=== PATIENT | female | born 1960 | race Two or more races ===

== ENCOUNTER 2024-07-02 13:20 | Outpatient (AMB) | payer MEDICAID, SELFPAY ==
[2024-07-02 13:38] VITALS: BP 147/91; PULSE 62; RESP 18; TEMP 36.3; O2SAT 98; BMI 29.5
--- NOTE | 2024-07-02 13:38 | PD.ORTHCLVIS ---
Vital signs 07/02/24 13:38 Height 1.55 m Height Method Stated Weight 70.931 kg Weight Measurement Method Standing Scale BMI 29.5 BP 147/91 H Blood Pressure Source Automatic Cuff Blood Pressure Location Right Upper Arm Position Sitting Respiration 18 Pulse 62 Pulse Source Monitor Temp 97.4 F Temp Source Temporal Artery Scan Pulse Oximetry (%) 98 Oxygen Delivery Method Room Air Med/Allergies Allergies & Medications Allergies No Known Drug Allergies Allergy (Verified 07/02/24 13:41) Medication Reconciliation metformin 500 mg tablet 500 mg PO QDAY 07/02/24 [History Confirmed 07/02/24] Subjective Visit Visit for: new patient and knee Immunization / Flu Flu Vaccine in the Last 12 Months: No Flu Vaccine Exclusion Criteria: No Exclusion Criteria History of Present Illness Chief complaint: BILATERAL KNEE INJECTION Patient is a pleasant 63-year-old female with bilateral knee pain worse on the left. She has had 2 injections of both knees. She was told is arthritis. The pain is actually improved. She has tried naproxen as well. No physical therapy has ever been attempted Personal History Occupation: DIET ATTENDANT Red flag PMH: none Pain Pain level (0-10): 8 Pain duration: ALL DAY Pain location: inside (medial), outside (lateral), anterior and posterior Pain quality: sharp, dull and aching Pain timing: night, increases with activity and stairs Associated signs & symptoms: stiffness Ambulatory data Ambulatory device: none Treatments Improvement with previous injections: No Improvement with PT: No Improvement with NSAIDS: n/a Review of Systems Review of Systems: All systems negative unless otherwise noted in HPI. Exam Exam Patient is in no acute distress and is cooperative with the examination today. Breathing is nonlabored. In no respiratory distress. Bilateral extremities were evaluated and demonstrates sensation intact to light touch. Palpable pedal pulses are present. No significant edema is present. Bilateral hips were examined. The patient has no pain with log roll of the hips. Internal rotation to 30 degrees and external rotation to 30 degrees is painless. Negative FADIR. The left knee was examined. The left knee is in [varus] alignment. Range of motion from [0-115] degrees. Knee is stable to varus and valgus as well as AP translation with <5mm. Patient has a [negative] McMurrays. There is [no] pain with patellofemoral compression and [no] crepitus noted. The knee is [tender] to palpation [medially]. The right knee was also examined. The right knee is in [varus] alignment. Range of motion from [0-120] degrees. Knee is stable to varus and valgus as well as AP translation with <5mm. Patient has a [negative] McMurrays. There is [no] pain with patellofemoral compression and [no] crepitus noted. The knee is [tender] to palpation [medially]. Assessment and Plan Problem List (1) Bilateral primary osteoarthritis of knee: Status: Acute Plan: The patient is a pleasant 63-year-old female with bilateral knee pain and bilateral knee osteoarthritis. The pain has subsided somewhat. She has done well with cortisone injections. We will get new x-rays and see her back in approximately 1 to 2 weeks to go over the results. Office Procedures GNS Level of Care Nursing/Assessment Patient Status: Initial/New Patient Nursing Assessment/Reassesment: Medication Reconciliation, Update PMH in EMR and Vital Signs Coordination of Care: Complex Care and Chronic Disease 1-5, Education Complex Pt/Fam, Consent,records obtained, informed consent, Results/Orders obtained and Staff clarify orders Special Needs: Language special needs New Patient Charge New Patient Point Assignment: 1094 New Patient Point Charge: SHIPPING AND RECEIVING OPERATOR Level 3 ([id number]) Past Medical History Past Medical History Have you ever been diagnosed with any of the following: Respiratory Problems Smoking: No Smoking Exposure: No
== END 2024-07-02 14:13 | disposition home or self-care (01) ==
LOC: HODSRG 13:20
PROVIDERS: PCP Nurse Practitioner Family; Referring Provider Nurse Practitioner Family; Supervising Provider Orthopaedic Surgery Adult Reconstructive Orthopaedic Surgery; Visit Provider Orthopaedic Surgery Adult Reconstructive Orthopaedic Surgery
DX: M17.0 Bilateral primary osteoarthritis of knee (principal); M25.562 Pain in left knee; M25.561 Pain in right knee
CPT/HCPCS: 99203; G0463

== ENCOUNTER 2024-07-26 09:38 | Outpatient (AMB) | payer MEDICAID, SELFPAY ==
[2024-07-26 10:10] VITALS: BP 143/91; PULSE 73; RESP 18; TEMP 36.6; O2SAT 94; BMI 29.0
--- NOTE | 2024-07-26 10:10 | ORTHONT_ITS ---
Vital signs 07/26/24 10:10 Height 1.55 m Height Method Stated Weight 69.853 kg Weight Measurement Method Standing Scale BMI 29.0 BP 143/91 H Blood Pressure Source Automatic Cuff Blood Pressure Location Right Upper Arm Position Sitting Respiration 18 Pulse 73 Pulse Source Monitor Temp 97.8 F Temp Source Temporal Artery Scan Pulse Oximetry (%) 94 L Oxygen Delivery Method Room Air Med/Allergies Allergies & Medications Allergies No Known Drug Allergies Allergy (Verified 07/26/24 10:13) Medication Reconciliation metformin 500 mg tablet 500 mg PO QDAY 07/02/24 [History Confirmed 07/26/24] meloxicam 7.5 mg tablet 7.5 mg PO QDAY #45 tabs 07/26/24 [Rx] Subjective Visit Visit for: follow up visit, knee and x-rays (BILATERAL) Immunization / Flu Flu Vaccine in the Last 12 Months: Yes Flu Vaccine Exclusion Criteria: Already Received History of Present Illness Chief complaint: XRAY RESULTS/INJECTION Patient is a pleasant 63-year-old female with bilateral knee pain worse on the left. She has had 2 injections of both knees. She was told is arthritis. The pain is actually improved. She has tried naproxen as well. No physical therapy has ever been attempted Personal History Occupation: INDUSTRIAL TRUCK OPERATOR Red flag PMH: none Pain Pain level (0-10): 8 Pain duration: CONSTANT Pain location: inside (medial) Pain quality: sharp, dull and aching Pain timing: night and increases with activity Associated signs & symptoms: stiffness Ambulatory data Ambulatory device: none Treatments Number of previous injections: 2 Improvement with previous injections: No Improvement with PT: No Improvement with NSAIDS: no Review of Systems Review of Systems: All systems negative unless otherwise noted in HPI. Exam Exam Patient is in no acute distress and is cooperative with the examination today. Breathing is nonlabored. In no respiratory distress. Bilateral extremities were evaluated and demonstrates sensation intact to light touch. Palpable pedal pulses are present. No significant edema is present. Bilateral hips were examined. The patient has no pain with log roll of the hips. Internal rotation to 30 degrees and external rotation to 30 degrees is painless. Negative FADIR. The left knee was examined. The left knee is in [varus] alignment. Range of motion from [0-115] degrees. Knee is stable to varus and valgus as well as AP translation with <5mm. Patient has a [negative] McMurrays. There is [no] pain with patellofemoral compression and [no] crepitus noted. The knee is [tender] to palpation [medially]. The right knee was also examined. The right knee is in [varus] alignment. Range of motion from [0-120] degrees. Knee is stable to varus and valgus as well as AP translation with <5mm. Patient has a [negative] McMurrays. There is [no] pain with patellofemoral compression and [no] crepitus noted. The knee is [tender] to palpation [medially]. X-rays demonstrate severe arthritis with medial joint space narrowing and osteophytes as well as varus deformity. Assessment and Plan Problem List (1) Bilateral primary osteoarthritis of knee: Status: Acute Plan: The patient is a pleasant 63-year-old female with bilateral knee pain and bilateral knee osteoarthritis. She has done well with cortisone injections. She would like to get knee cortisone injections today. We have also prescribed her an anti-inflammatory. Recommend knee cortisone injections as patient would like to proceed with conservative treatment at this time. The risks and benefits of the procedure were reviewed with the patient and patient gave verbal consent to continue with the procedure. Procedure: performed by Dr. Lawrence Using sterile technique the Bilateral knees were thoroughly prepped with alcohol, and approximately 1 cc of Kenalog 40 mg/mL and 4 cc of 1% lidocaine was injected into each knee without resistance into the medial tibial femoral joint space. The patient tolerated the procedure. Office Procedures GNS Level of Care Nursing/Assessment Patient Status: Established Patient Nursing Assessment/Reassesment: Medication Reconciliation, Update PMH in EMR and Vital Signs Coordination of Care: Complex Care and Chronic Disease 1-5, Education Complex Pt/Fam, Consent,records obtained, informed consent, 1 Ins Authorization, Results/Orders obtained and Staff clarify orders Special Needs: Language special needs Established Patient Charge Established Patient Point Assignment: 110 Established Patient Point Charge: EP Level 3 (80-115) Surgical Proc/IM SQ injection Major Surgical Procedure: Yes (BILATERAL KNEE INJECTION) Medication Given Medication Given Medication Given: Yes Documented Dose Given: 8 Route: Infiitration Medication Given Medication Given Medication Given: Yes Documented Dose Given: 2 Route: Infiitration Office Meds Xylocaine 10 mg/mL (1 %) injection solution Performing Provider: Miles Lawrence MD Performing Location: [facility] Administered by: Mlies Lawrence MD on 07/26/24 10:43 Dose Route Admin Location Dispensed Lot Number Expiration Date [facility] Brake Repairer Hydraulic 40 mL Infiltration 40 mL [id number] 04/02/27 61685-109-54 [facility] triamcinolone acetonide 40 mg/mL suspension for injection Performing Provider: Miles Lawrence MD Performing Location: [facility] Administered by: Miles Lawrence MD on 07/26/24 10:43 Dose Route Admin Location Dispensed Lot Number Expiration Date [facility] Brake Rep[employer]r Hydraulic 80 mg Infiltration 2 mL [id number] 04/02/26 [id number] [employer] Past Medical History Past Medical History Have you ever been diagnosed with any of the following: Respiratory Problems Smoking: No Smoking Exposure: No
== END 2024-07-26 10:41 | disposition home or self-care (01) ==
LOC: HODSRG 09:38
PROVIDERS: PCP Nurse Practitioner Family; Referring Provider Nurse Practitioner Family; Supervising Provider Orthopaedic Surgery Adult Reconstructive Orthopaedic Surgery; Visit Provider Orthopaedic Surgery Adult Reconstructive Orthopaedic Surgery
DX: M17.0 Bilateral primary osteoarthritis of knee (principal); M25.562 Pain in left knee; M25.561 Pain in right knee
CPT/HCPCS: 20610; 99213; J3301; J3490; G0463

== ENCOUNTER 2024-11-08 13:09 | Outpatient (AMB) | payer MEDICAID, SELFPAY ==
--- NOTE | 2024-11-08 13:20 | PD.ORTHCLVIS ---
Vital signs 11/08/24 13:27 Height 1.55 m Height Method Stated Weight 69.57 kg Weight Measurement Method Standing Scale BMI 28.9 BP 141/91 H Blood Pressure Source Automatic Cuff Blood Pressure Location Right Upper Arm Position Sitting Respiration 19 Pulse 67 Pulse Source Monitor Temp 96.2 F L Temp Source Temporal Artery Scan Pulse Oximetry (%) 98 Oxygen Delivery Method Room Air Med/Allergies Allergies & Medications Allergies No Known Drug Allergies Allergy (Verified 11/08/24 13:28) Medication Reconciliation metformin 500 mg tablet 500 mg PO QDAY 07/02/24 [History Confirmed 11/08/24] meloxicam 7.5 mg tablet 7.5 mg PO QDAY #45 tabs 07/26/24 [Rx Confirmed 11/08/24] Exam Exam Patient is in no acute distress and is cooperative with the examination today. Breathing is nonlabored. In no respiratory distress. Bilateral extremities were evaluated and demonstrates sensation intact to light touch. Palpable pedal pulses are present. No significant edema is present. Bilateral hips were examined. The patient has no pain with log roll of the hips. Internal rotation to 30 degrees and external rotation to 30 degrees is painless. Negative FADIR. The left knee was examined. The left knee is in [varus] alignment. Range of motion from [0-115] degrees. Knee is stable to varus and valgus as well as AP translation with <5mm. Patient has a [negative] McMurrays. There is [no] pain with patellofemoral compression and [no] crepitus noted. The knee is [tender] to palpation [medially]. The right knee was also examined. The right knee is in [varus] alignment. Range of motion from [0-120] degrees. Knee is stable to varus and valgus as well as AP translation with <5mm. Patient has a [negative] McMurrays. There is [no] pain with patellofemoral compression and [no] crepitus noted. The knee is [tender] to palpation [medially]. X-rays demonstrate severe arthritis with medial joint space narrowing and osteophytes as well as varus deformity. Assessment and Plan Problem List (1) Bilateral primary osteoarthritis of knee: Status: Acute Plan: The patient is a pleasant 64-year-old female with bilateral knee pain and bilateral knee osteoarthritis. She has done well with cortisone injections. She would like to get knee cortisone injections today. We have also prescribed her an anti-inflammatory. Recommend knee cortisone injections as patient would like to proceed with conservative treatment at this time. The risks and benefits of the procedure were reviewed with the patient and patient gave verbal consent to continue with the procedure. Procedure: performed by Dr. Lawrence Using sterile technique the Bilateral knees were thoroughly prepped with alcohol, and approximately 1 cc of Kenalog 40 mg/mL and 4 cc of 1% lidocaine was injected into each knee without resistance into the medial tibial femoral joint space. The patient tolerated the procedure. Office Procedures GNS Level of Care Nursing/Assessment Patient Status: Established Patient Nursing Assessment/Reassesment: Medication Reconciliation, Update PMH in EMR and Vital Signs Coordination of Care: Complex Care and Chronic Disease 1-5, Education Complex Pt/Fam, Consent,records obtained, informed consent, Results/Orders obtained and Staff clarify orders Special Needs: Language special needs Established Patient Charge Established Patient Point Assignment: 95 Established Patient Point Charge: EP Level 3 (80-115) Surgical Proc/IM SQ injection Major Surgical Procedure: Yes (knee injections ) Medication Given Medication Given Medication Given: Yes Documented Dose Given: 8 Route: Infiitration Medication Given Medication Given Medication Given: Yes Documented Dose Given: 2 Route: Infiitration Office Meds Xylocaine 10 mg/mL (1 %) injection solution Performing Provider: Miles Lawrence MD Performing Location: [facility] Administered by: Miles Lawrence MD on 11/08/24 13:29 Dose Route Admin Location Dispensed Lot Number Expiration Date [facility] Freight Elevator Operator 40 mL Infiltration 40 mL triamcinolone acetonide 40 mg/mL suspension for injection Performing Provider: Miles Lawrence MD Performing Location: [facility] Administered by: Miles Lawrence MD on 11/08/24 13:29 Dose Route Admin Location Dispensed Lot Number Expiration Date [facility] Freight Elevator Operator 80 mg intra-articular 2 mL MA Intake Visit Data Collection New Patient or Established: Established Patient (seen at [facility] within 3 years) Reason for Visit:: f/u knee injections Seen by Clinical Staff ONLY (RN/MA): No Verbal consent obtained for Telemed visit?: No Foreclosure Specialist Required: Yes PCP or OBGYN visit in last 3 months: Yes Hx Now: No Do You Feel Safe at Home: Yes Authorities Contacted: N/A Questionairres Past Medical History Past Medical History Have you ever been diagnosed with any of the following: Respiratory Problems Smoking: No Smoking Exposure: No Subjective Visit Visit for: knee and injections Immunization / Flu Flu Vaccine in the Last 12 Months: No Flu Vaccine Exclusion Criteria: No Exclusion Criteria History of Present Illness Chief complaint: Bilateral knee pain Patient is a pleasant 61-year-old female with bilateral knee pain and bilateral knee arthritis. She is done well with cortisone injections in the past. She would like bilateral knee injections today. The knee injections have worked for 3 months Pain Pain level (0-10): 5 Pain location: inside (medial), outside (lateral), anterior and posterior Pain quality: sharp, dull and aching Associated signs & symptoms: none Ambulatory data Ambulatory device: none Treatments Improvement with previous injections: Yes Improvement with PT: Yes Improvement with NSAIDS: no Review of Systems Review of Systems: All systems negative unless otherwise noted in HPI.
[2024-11-08 13:27] VITALS: BP 141/91; PULSE 67; RESP 19; TEMP 35.7; O2SAT 98; BMI 28.9
== END 2024-11-08 13:41 | disposition home or self-care (01) ==
LOC: HODSRG 13:09
PROVIDERS: PCP Registered Nurse; Referring Provider Registered Nurse; Supervising Provider Orthopaedic Surgery Adult Reconstructive Orthopaedic Surgery; Visit Provider Orthopaedic Surgery Adult Reconstructive Orthopaedic Surgery
DX: M17.0 Bilateral primary osteoarthritis of knee (principal); M25.562 Pain in left knee; M25.561 Pain in right knee
CPT/HCPCS: 20610; 99213; J3301; J3490; G0463

== ENCOUNTER 2025-02-11 13:10 | Outpatient (AMB) | payer MEDICAID, SELFPAY ==
--- NOTE | 2025-02-11 13:40 | PD.ORTHCLVIS ---
Vital signs 02/11/25 13:43 Height 1.55 m Height Method Stated Weight 71.356 kg Weight Measurement Method Standing Scale BMI 29.7 BP 125/80 Blood Pressure Source Automatic Cuff Blood Pressure Location Left Upper Arm Position Sitting Respiration 18 Pulse 69 Pulse Source Monitor Temp 98.2 F Temp Source Temporal Artery Scan Pulse Oximetry (%) 97 Oxygen Delivery Method Room Air Med/Allergies Allergies & Medications Allergies No Known Drug Allergies Allergy (Verified 02/11/25 13:44) Medication Reconciliation metformin 500 mg tablet 500 mg PO QDAY 07/02/24 [History Confirmed 02/11/25] meloxicam 7.5 mg tablet 7.5 mg PO QDAY #45 tabs 07/26/24 [Rx Confirmed 02/11/25] Exam Exam Patient is in no acute distress and is cooperative with the examination today. Breathing is nonlabored. In no respiratory distress. Bilateral extremities were evaluated and demonstrates sensation intact to light touch. Palpable pedal pulses are present. No significant edema is present. Bilateral hips were examined. The patient has no pain with log roll of the hips. Internal rotation to 30 degrees and external rotation to 30 degrees is painless. Negative FADIR. The left knee was examined. The left knee is in [varus] alignment. Range of motion from [0-115] degrees. Knee is stable to varus and valgus as well as AP translation with <5mm. Patient has a [negative] McMurrays. There is [no] pain with patellofemoral compression and [no] crepitus noted. The knee is [tender] to palpation [medially]. The right knee was also examined. The right knee is in [varus] alignment. Range of motion from [0-120] degrees. Knee is stable to varus and valgus as well as AP translation with <5mm. Patient has a [negative] McMurrays. There is [no] pain with patellofemoral compression and [no] crepitus noted. The knee is [tender] to palpation [medially]. X-rays demonstrate severe arthritis with medial joint space narrowing and osteophytes as well as varus deformity. Assessment and Plan Problem List (1) Bilateral primary osteoarthritis of knee: Status: Acute Plan: The patient is a pleasant 64-year-old female with bilateral knee pain and bilateral knee osteoarthritis. She has done well with cortisone injections. She would like to get knee cortisone injections today. We have also prescribed her an anti-inflammatory. Recommend knee cortisone injections as patient would like to proceed with conservative treatment at this time. The risks and benefits of the procedure were reviewed with the patient and patient gave verbal consent to continue with the procedure. Procedure: performed by Dr. Lawrence Using sterile technique the Bilateral knees were thoroughly prepped with alcohol, and approximately 1 cc of Kenalog 40 mg/mL and 4 cc of 1% lidocaine was injected into each knee without resistance into the medial tibial femoral joint space. The patient tolerated the procedure. Office Procedures GNS Level of Care Nursing/Assessment Patient Status: Established Patient Nursing Assessment/Reassesment: Medication Reconciliation, Update PMH in EMR and Vital Signs Coordination of Care: Complex Care and Chronic Disease 1-5, Education Complex Pt/Fam, Consent,records obtained, informed consent, Results/Orders obtained and Staff clarify orders Special Needs: Language special needs Established Patient Charge Established Patient Point Assignment: 95 Established Patient Point Charge: EP Level 3 (80-115) MA Intake Visit Data Collection New Patient or Established: Established Patient (seen at [facility] within 3 years) Reason for Visit:: BILATERAL KNEE INJ F/U Seen by Clinical Staff ONLY (RN/MA): No Tape Control Skin Or Spar Mill Operator Required: Yes PCP or OBGYN visit in last 3 months: Yes Hx Now: No Do You Feel Safe at Home: Yes Authorities Contacted: N/A Questionairres Past Medical History Past Medical History Have you ever been diagnosed with any of the following: Respiratory Problems Smoking: No Smoking Exposure: No Subjective Visit Visit for: follow up visit, knee and injections Immunization / Flu Flu Vaccine in the Last 12 Months: No Flu Vaccine Exclusion Criteria: No Exclusion Criteria History of Present Illness Chief complaint: Left knee pain Patient is a pleasant 61-year-old female with bilateral knee pain and bilateral knee arthritis. She is done well with cortisone injections in the past. She would like bilateral knee injections today. The knee injections have worked for 3 months Pain Pain level (0-10): 8 Pain duration: CONSTANT Pain location: inside (medial), outside (lateral), anterior and posterior Pain quality: sharp, dull, aching and other (specify) (HEAVY) Pain timing: night, increases with activity and stairs Associated signs & symptoms: other (specify) Ambulatory data Ambulatory device: none Treatments Number of previous injections: 2 Improvement with previous injections: Yes Improvement with PT: No Improvement with NSAIDS: no Review of Systems Review of Systems: All systems negative unless otherwise noted in HPI.
[2025-02-11 13:43] VITALS: BP 125/80; PULSE 69; RESP 18; TEMP 36.8; O2SAT 97; BMI 29.7
== END 2025-02-11 13:59 | disposition home or self-care (01) ==
LOC: HODSRG 13:10
PROVIDERS: PCP Registered Nurse; Referring Provider Registered Nurse; Supervising Provider Orthopaedic Surgery Adult Reconstructive Orthopaedic Surgery; Visit Provider Orthopaedic Surgery Adult Reconstructive Orthopaedic Surgery
DX: M17.0 Bilateral primary osteoarthritis of knee (principal); M25.562 Pain in left knee; M25.561 Pain in right knee
CPT/HCPCS: 20610; 99213; J3301; J3490; G0463

== ENCOUNTER 2025-05-13 13:14 | Outpatient (AMB) | payer MEDICAID, SELFPAY ==
--- NOTE | 2025-05-13 13:19 | ORTHONT_ITS ---
Vital signs 05/13/25 13:25 Height 1.55 m Height Method Measured Weight 69.513 kg Weight Measurement Method Standing Scale BMI 28.9 BP 134/81 H Blood Pressure Source Automatic Cuff Blood Pressure Location Left Upper Arm Position Sitting Respiration 18 Pulse 72 Pulse Source Monitor Temp 97.6 F Temp Source Temporal Artery Scan Pulse Oximetry (%) 96 Oxygen Delivery Method Room Air Med/Allergies Allergies & Medications Allergies No Known Drug Allergies Allergy (Verified 05/13/25 13:26) Medication Reconciliation metformin 500 mg tablet 500 mg PO QDAY 07/02/24 [History Confirmed 05/13/25] meloxicam 7.5 mg tablet 7.5 mg PO QDAY #45 tabs 07/26/24 [Rx Confirmed 05/13/25] Exam Exam Patient is in no acute distress and is cooperative with the examination today. Breathing is nonlabored. In no respiratory distress. Bilateral extremities were evaluated and demonstrates sensation intact to light touch. Palpable pedal pulses are present. No significant edema is present. Bilateral hips were examined. The patient has no pain with log roll of the hips. Internal rotation to 30 degrees and external rotation to 30 degrees is painless. Negative FADIR. The left knee was examined. The left knee is in [varus] alignment. Range of motion from [0-115] degrees. Knee is stable to varus and valgus as well as AP translation with <5mm. Patient has a [negative] McMurrays. There is [no] pain with patellofemoral compression and [no] crepitus noted. The knee is [tender] to palpation [medially]. The right knee was also examined. The right knee is in [varus] alignment. Range of motion from [0-120] degrees. Knee is stable to varus and valgus as well as AP translation with <5mm. Patient has a [negative] McMurrays. There is [no] pain with patellofemoral compression and [no] crepitus noted. The knee is [tender] to palpation [medially]. X-rays demonstrate severe arthritis with medial joint space narrowing and osteophytes as well as varus deformity. Assessment and Plan Problem List (1) Bilateral primary osteoarthritis of knee: Status: Acute Plan: The patient is a pleasant 64-year-old female with bilateral knee pain and bilateral knee osteoarthritis. She has done well with cortisone injections. She would like to get knee cortisone injections today. We have also prescribed her an anti-inflammatory. Recommend knee cortisone injection as patient would like to proceed with conservative treatment at this time. The risks and benefits of the procedure were reviewed with the patient and patient gave verbal consent to continue with the procedure. Procedure: performed by Dr. Lawrence Using sterile technique the left knee was thoroughly prepped with alcohol, and approximately 1 cc of Depo-Medrol 80mg/mL and 4 cc of 0.2% ropivacaine was injected without resistance into the medial tibial femoral joint space. The patient tolerated the procedure. Recommend knee cortisone injection as patient would like to proceed with conservative treatment at this time. The risks and benefits of the procedure were reviewed with the patient and patient gave verbal consent to continue with the procedure. Procedure: performed by Dr. Lawrence Using sterile technique the Right knee was thoroughly prepped with alcohol, and approximately 1 cc of Depo-Medrol 80mg/mL and 4 cc of 0.2% ropivacaine was injected without resistance into the medial tibial femoral joint space. The patient tolerated the procedure. Office Procedures GNS Level of Care Nursing/Assessment Patient Status: Established Patient Nursing Assessment/Reassesment: Medication Reconciliation, Orthostatic Vitals, Update PMH in EMR and Vital Signs Coordination of Care: Complex Care and Chronic Disease 1-5, Education Complex Pt/Fam, Consent,records obtained, informed consent, Lab and Imaging orders, Results/Orders obtained and Staff clarify orders Special Needs: Language special needs Established Patient Charge Established Patient Point Assignment: 120 Established Patient Point Charge: EP Level 4 (120-155) Surgical Proc/IM SQ injection Major Surgical Procedure: Yes (BILATERAL KNEE INJECITON) Medication Given Medication Given Medication Given: Yes Documented Dose Given: 1 Route: Infiitration Medication Given Medication Given Medication Given: Yes Documented Dose Given: 1 Route: Infiitration Medication Given Medication Given Medication Given: Yes Documented Dose Given: 4 Route: Infiitration Medication Given Medication Given Medication Given: Yes Documented Dose Given: 4 Route: Infiitration Office Meds methylprednisolone acetate 80 mg/mL suspension for injection Performing Provider: Miles Lawrence MD Performing Location: [facility] Administered by: Miles Lawrence MD on 05/13/25 15:14 Dose Route Admin Location Dispensed Lot Number Expiration Date Pack age [facility] Final Application Reviewer 80 mg intra-articular 1 mL [id number] 01/31/27 [address]-7 7 [id number] [employer] methylprednisolone acetate 80 mg/mL suspension for injection Performing Provider: Miles Lawrence MD Performing Location: [facility] Administered by: Miles Lawrence MD on 05/13/25 15:14 Dose Route Admin Location Dispensed Lot Number Expiration Date Pack age NDC NDC Final Application Reviewer 80 mg intra-articular 1 mL [id number] 01/31/27 [address]-1 7 [id number] [employer] ropivacaine (PF) 2 mg/mL (0.2 %) injection solution Performing Provider: Miles Lawrence MD Performing Location: [facility] Administered by: Miles Lawrence MD on 05/13/25 15:14 Dose Route Admin Location Dispensed Lot Number Expiration Date Pack age NDC NDC Final Application Reviewer 20 mL Infiltration 20 mL [id number] 10/03/27 55056-120-75 4306 [id number] [employer] ropivacaine (PF) 2 mg/mL (0.2 %) injection solution Performing Provider: Miles Lawrence MD Performing Location: [facility] Administered by: Miles Lawrence MD on 05/13/25 15:14 Dose Route Admin Location Dispensed Lot Number Expiration Date Pack age NDC NDC Final Application Reviewer 20 mL Infiltration 20 mL [id number] 10/03/27 14440-442-59 [id number] [facility] Intake Visit Data Collection New Patient or Established: Established Patient (seen at [facility] within 3 years) Reason for Visit:: BILATERAL KNEE INJ F/U Seen by Clinical Staff ONLY (RN/MA): No Associate Editor Required: Yes PCP or OBGYN visit in last 3 months: Yes Hx Now: No Do You Feel Safe at Home: Yes Authorities Contacted: N/A Questionairres Past Medical History Past Medical History Have you ever been diagnosed with any of the following: Respiratory Problems Smoking: No Smoking Exposure: No Subjective Visit Visit for: follow up visit, knee and injections Immunization / Flu Flu Vaccine in the Last 12 Months: No Flu Vaccine Exclusion Criteria: No Exclusion Criteria History of Present Illness Chief complaint: Left knee pain Patient is a pleasant 61-year-old female with bilateral knee pain and bilateral knee arthritis. She is done well with cortisone injections in the past. She would like bilateral knee injections today. The knee injections have worked for 3 months and she wants new ones today. Pain Pain level (0-10): 8 Pain duration: CONSTANT Pain location: inside (medial), outside (lateral), anterior and posterior Pain quality: sharp, dull, aching and other (specify) (HEAVY) Pain timing: night, increases with activity and stairs Associated signs & symptoms: other (specify) Ambulatory data Ambulatory device: none Treatments Number of previous injections: 2 Improvement with previous injections: Yes Improvement with PT: No Improvement with NSAIDS: no Review of Systems Review of Systems: All systems negative unless otherwise noted in HPI.
[2025-05-13 13:25] VITALS: BP 134/81; PULSE 72; RESP 18; TEMP 36.4; O2SAT 96; BMI 28.9
== END 2025-05-13 13:51 | disposition home or self-care (01) ==
LOC: HODSRG 13:14
PROVIDERS: PCP Registered Nurse; Referring Provider Registered Nurse; Supervising Provider Orthopaedic Surgery Adult Reconstructive Orthopaedic Surgery; Visit Provider Orthopaedic Surgery Adult Reconstructive Orthopaedic Surgery
DX: M17.0 Bilateral primary osteoarthritis of knee (principal); M25.562 Pain in left knee; M25.561 Pain in right knee
CPT/HCPCS: 20610; 99214; J1010; J2795; G0463

== ENCOUNTER 2025-08-26 13:31 | Outpatient (AMB) | payer MEDICAID, SELFPAY ==
[2025-08-26 13:43] VITALS: BP 155/83; PULSE 99; RESP 18; TEMP 36.4; O2SAT 98; BMI 27.8
--- NOTE | 2025-08-26 13:43 | ORTHONT_ITS ---
Vital signs 08/26/25 13:43 Height 1.55 m Height Method Stated Weight 66.791 kg Weight Measurement Method Standing Scale BMI 27.8 BP 155/83 H Blood Pressure Source Automatic Cuff Blood Pressure Location Left Upper Arm Position Sitting Respiration 18 Pulse 99 Pulse Source Monitor Temp 97.6 F Temp Source Temporal Artery Scan Pulse Oximetry (%) 98 Oxygen Delivery Method Room Air Med/Allergies Allergies & Medications Allergies No Known Drug Allergies Allergy (Verified 08/26/25 14:08) Medication Reconciliation metformin 500 mg tablet 500 mg PO QDAY 07/02/24 [History Confirmed 08/26/25] meloxicam 7.5 mg tablet 7.5 mg PO QDAY #45 tabs 07/26/24 [Rx Confirmed 08/26/25] Exam Exam Patient is in no acute distress and is cooperative with the examination today. Breathing is nonlabored. In no respiratory distress. Bilateral extremities were evaluated and demonstrates sensation intact to light touch. Palpable pedal pulses are present. No significant edema is present. Bilateral hips were examined. The patient has no pain with log roll of the hips. Internal rotation to 30 degrees and external rotation to 30 degrees is painless. Negative FADIR. The left knee was examined. The left knee is in [varus] alignment. Range of motion from [0-115] degrees. Knee is stable to varus and valgus as well as AP translation with <5mm. Patient has a [negative] McMurrays. There is [no] pain with patellofemoral compression and [no] crepitus noted. The knee is [tender] to palpation [medially]. The right knee was also examined. The right knee is in [varus] alignment. Range of motion from [0-120] degrees. Knee is stable to varus and valgus as well as AP translation with <5mm. Patient has a [negative] McMurrays. There is [no] pain with patellofemoral compression and [no] crepitus noted. The knee is [tender] to palpation [medially]. X-rays demonstrate severe arthritis with medial joint space narrowing and osteophytes as well as varus deformity. Assessment and Plan Problem List (1) Bilateral primary osteoarthritis of knee: Status: Acute Plan: The patient is a pleasant 64-year-old female with bilateral knee pain and bilateral knee osteoarthritis. She has done well with cortisone injections. She would like to get knee cortisone injections today. We have also prescribed her an anti-inflammatory. We discussed that we talked about anti-inflammatories if the pain worsens Recommend knee cortisone injection as patient would like to proceed with conservative treatment at this time. The risks and benefits of the procedure were reviewed with the patient and patient gave verbal consent to continue with the procedure. Procedure: performed by Dr. Lawrence Using sterile technique the left knee was thoroughly prepped with alcohol, and approximately 1 cc of Depo-Medrol 80mg/mL and 4 cc of 0.2% ropivacaine was injected without resistance into the medial tibial femoral joint space. The patient tolerated the procedure. Recommend knee cortisone injection as patient would like to proceed with conservative treatment at this time. The risks and benefits of the procedure were reviewed with the patient and patient gave verbal consent to continue with the procedure. Procedure: performed by Dr. Lawrence Using sterile technique the Right knee was thoroughly prepped with alcohol, and approximately 1 cc of Depo-Medrol 80mg/mL and 4 cc of 0.2% ropivacaine was injected without resistance into the medial tibial femoral joint space. The patient tolerated the procedure. Office Procedures GNS Level of Care Nursing/Assessment Patient Status: Established Patient Nursing Assessment/Reassesment: Medication Reconciliation, Update PMH in EMR and Vital Signs Coordination of Care: Complex Care and Chronic Disease 1-5, Education Complex Pt/Fam, Consent,records obtained, informed consent, Results/Orders obtained and Staff clarify orders Established Patient Charge Established Patient Point Assignment: 95 Established Patient Point Charge: EP Level 3 (80-115) Surgical Proc/IM SQ injection Minor Surgical Procedure: Yes (BILATERAL KNEE INJECTION) Medication Given Medication Given Medication Given: Yes Documented Dose Given: 2 Route: Infiitration Medication Given Medication Given Medication Given: Yes Documented Dose Given: 8 Route: Infiitration Office Meds methylprednisolone acetate 80 mg/mL suspension for injection Performing Provider: Miles Lawrence MD Performing Location: [facility] Administered by: Miles Lawrence MD on 08/26/25 15:11 Dose Route Admin Location Dispensed Lot Number Expiration Date Pack age [facility] Soaker Helper 160 mg intra-articular KNEE 2 mL [id number] 05/03/27 [address]-3 [id number] [employer] ropivacaine (PF) 2 mg/mL (0.2 %) injection solution Performing Provider: Miles Lawrence MD Performing Location: [facility] Administered by: Miles Lawrence MD on 08/26/25 15:11 Dose Route Admin Location Dispensed Lot Number Expiration Date Pack age [facility] Soaker Helper 40 mL Infiltration KNEE 40 mL [id number] 01/31/27 3175-6244-85 [id number] KANDY GRACIA MA Intake Visit Data Collection New Patient or Established: Established Patient (seen at [facility] within 3 years) Reason for Visit:: BILATERAL KNEE INJ F/U Seen by Clinical Staff ONLY (RN/MA): No Electrical Continuity Inspector Required: Yes PCP or OBGYN visit in last 3 months: Yes Hx Now: No Do You Feel Safe at Home: Yes Authorities Contacted: N/A Questionairres Past Medical History Past Medical History Have you ever been diagnosed with any of the following: Respiratory Problems Smoking: No Smoking Exposure: No Subjective Visit Visit for: follow up visit, knee and injections Immunization / Flu Flu Vaccine in the Last 12 Months: No Flu Vaccine Exclusion Criteria: No Exclusion Criteria History of Present Illness Chief complaint: Left knee pain Patient is a pleasant 61-year-old female with bilateral knee pain and bilateral knee arthritis. She is done well with cortisone injections in the past. She would like bilateral knee injections today. The knee injections have worked for 3 months and she wants new ones today. Pain Pain level (0-10): 8 Pain duration: CONSTANT Pain location: inside (medial), outside (lateral), anterior and posterior Pain quality: sharp, dull, aching and other (specify) (HEAVY) Pain timing: night, increases with activity and stairs Associated signs & symptoms: other (specify) Ambulatory data Ambulatory device: none Treatments Number of previous injections: 2 Improvement with previous injections: Yes Improvement with PT: No Improvement with NSAIDS: no Review of Systems Review of Systems: All systems negative unless otherwise noted in HPI.
== END 2025-08-26 13:54 | disposition home or self-care (01) ==
LOC: HODSRG 13:31
PROVIDERS: PCP Registered Nurse; Referring Provider Registered Nurse; Supervising Provider Orthopaedic Surgery Adult Reconstructive Orthopaedic Surgery; Visit Provider Orthopaedic Surgery Adult Reconstructive Orthopaedic Surgery
DX: M17.0 Bilateral primary osteoarthritis of knee (principal); M25.562 Pain in left knee; M25.561 Pain in right knee
CPT/HCPCS: 20610; 99213; J1010; J2795; G0463

== ENCOUNTER 2025-08-26 14:04 | Emergency (ER) | payer MEDICAID, SELFPAY ==
[2025-08-26 14:05] VITALS: BMI 27.1
[2025-08-26 14:19] VITALS: BP 148/88; PULSE 91; RESP 16; TEMP 36.4; O2SAT 98
--- NOTE | 2025-08-26 14:48 | XR_ITS ---
EXAMINATION: PA chest single view TECHNIQUE: Upright PA chest single view Date and time: August 2020, 2024, 1456 hours INDICATIONS: Difficulty breathing today. FINDINGS: Normal heart size Lungs are clear. The Osei structures are intact IMPRESSION: No active disease
--- NOTE | 2025-08-26 14:48 | EKG_ITS ---
[facility] Test Date: 2025-08-26 Pat Name: RUSH RODARTE Department: Room: - Gender: Female Sewer Inspector: : 1960 Requested By: Henry Rodriguez Order Number: [id number] Reading MD: Henry Rodriguez Measurements Intervals [place] Rate: 98 P: 36 [place]: 146 QRS: -18 QRSD: 74 T: 53 QT: 322 QTc: 413 Interpretive Statements SINUS RHYTHM NONSPECIFIC ST ELEVATION [0.05+ mV ST ELEVATION] No previous ECG available for comparison /[id number]/[email or web address]/[id number]
[2025-08-26 15:33] LABS: Basophils # (Auto) 0.0 Thou/mm3 (0.0-0.2); Basophils % (Auto) 0 % (0-2.5); Eosinophils # (Auto) 0.0 Thou/mm3 (0.0-0.5); Eosinophils % (Auto) 1 % (0-10); Hematocrit 43.8 % (36.0-46.0); Hemoglobin 14.9 g/dL (12.0-16.0); Immature Granulocytes Auto 0.10 Thou/mm3 (0.00-0.00); Lymphocytes # (Auto) 1.4 Thou/mm3 (1.0-4.8); Lymphocytes % (Auto) 53 % (10-50); Mean Corpuscular HGB Conc 34.0 g/dl (31.0-37.0); Mean Corpuscular Hemoglobin 31.5 pg (25.0-35.0); Mean Corpuscular Volume 93 fL (80-100); Monocytes # (Auto) 0.0 Thou/mm3 (0.0-0.8); Monocytes % (Auto) 0 % (0-12); Neutrophils # (Auto) 1.1 Thou/mm3 (1.8-7.7); Neutrophils % (Auto) 42 % (37-80); Nucleated Red Blood Cell # 0.00 Thou/mm3 (0.00-0.00); Nucleated Red Blood Cell % 0 /100 WBC (0); Platelet Count 254 Thou/mm3 (140-440); RDW Standard Deviation 42.2 fL (36.4-46.3); Red Blood Count 4.73 Miln/mm3 (4.00-5.20); White Blood Count 2.6 Thou/mm3 (3.6-11.0)
[2025-08-26 15:54] LABS: B-Type Natriuretic Peptide 23 pg/mL (0-100)
[2025-08-26 16:42] LABS: Alanine Aminotransferase 17 U/L (10-49); Albumin, Serum 4.6 gm/dL (3.4-4.8); Albumin/Globulin Ratio 1.8 (1.2-2.2); Alkaline Phosphatase 74 U/L (46-116); Anion Gap 13 (7-16); Aspartate Amino Transferase 23 U/L (0-34); BUN/Creatinine Ratio 14 Ratio (12-20); Bilirubin,Total 0.5 mg/dL (0.3-1.2); Blood Urea Nitrogen 14 mg/dL (9-23); Calcium 9.4 mg/dL (8.3-10.6); Calcium (Corrected) 9.4 mg/dL (8.5-10.1); Carbon Dioxide 24.8 mMol/L (20.0-31.0); Chloride 106 mMol/L (98-107); Creatinine (Component) 1.0 mg/dL (0.6-1.3); Estimated Creatinine Clearance 51.7 mL/min (>60); Globulin 2.5 gm/dL (2.3-3.5); Glucose 114 mg/dL (74-106); Osmolality,Calculated 288 (275-295); Potassium 4.0 mMol/L (3.4-5.1); Sodium 144 mMol/L (136-145); Thyroid Stimulating Hormone 1.06 uIU/mL (0.55-4.78); Total Protein 7.1 gm/dL (5.7-8.2); Troponin I < 0.020 ng/mL (0.0-0.045); eGFR > 60 See Note
--- NOTE | 2025-08-26 17:50 | PD.EDALLER ---
ED Allergic Reaction RME/HPI General Chief complaint: Allergic Reaction Stated complaint: POSS ALLERGIC RX, DIFF BREATHING Time Seen by Provider: 08/26/25 14:29 Arrival date/time: 08/26/25 14:04 This is a case of 64-year-old female with history of osteoarthritis of both knee came in in the emergency room due to heart racing feeling anxious and mild shortness of breath after corticosteroid on both knee for his osteoarthritis of the knee patient has no rash no facial or throat swelling Limitations: no limitations Related Data Home Medications ?Medication ?Instructions ?Recorded ?Confirmed metformin 500 mg tablet 500 mg PO QDAY 07/02/24 08/26/25 Previous Rx's ?Medication ?Instructions ?Recorded meloxicam 7.5 mg tablet 7.5 mg PO QDAY #45 tabs 07/26/24 hydroxyzine pamoate 25 mg capsule 25 mg PO BID PRN anxiety #10 caps 08/26/25 Allergies Allergy/AdvReac Type Severity Reaction Status Date / Time No Known Drug Allergies Allergy Verified 08/26/25 14:08 Review of Systems Review of Systems Systems Reviewed: All systems reviewed, normal except as documented Past Medical History Past Medical History RESPIRATORY: Negative Smoking or Smoking Exposure Social History SMOKING STATUS: Never smoker ED Exam General Limitations: Present no limitations General appearance: Present alert, in no apparent distress and other (Patient is awake alert oriented not in distress nontoxic looking well-hydrated well nourished) Head Head exam: Present atraumatic Eye Eye exam: Present normal appearance, PERRL and EOMI ENT ENT exam: Present normal exam, normal oropharynx, mucous membranes moist and other ( HEENT exam is normal and unremarkable facial no throat swelling no drooling of saliva patient can speak full sentenceces) Neck Neck exam: Present normal inspection, full ROM and trachea midline; Absent tenderness, meningismus, lymphadenopathy or thyromegaly Chest Chest inspection: Present normal inspection and symmetric chest wall rise; Absent tenderness Respiratory Respiratory exam: Present normal lung sounds bilaterally and other (No rhonchi no rales no retraction no); Absent respiratory distress, wheezes, stridor, accessory muscle use or prolonged expiratory phase Cardiovascular Cardiovascular exam: Present regular rate, normal rhythm, normal heart sounds and other (No pitting edema); Absent bradycardia, tachycardia, irregular rhythm, systolic murmur or diastolic murmur Abdominal Exam Abdominal exam: Present soft and normal bowel sounds Extremities Exam Extremities exam: Present normal inspection and full ROM Back Exam Back exam: Present normal inspection and full ROM Neurological Exam Neurological exam: Present alert, oriented X3, CN II-XII intact, normal gait and reflexes normal; Absent motor sensory deficit Psychiatric Psychiatric exam: Present normal affect and normal mood Skin Skin exam: Present warm, dry, intact and normal color; Absent rash Course Quality Measures none Orders Category Date Time Status EKG (ED ONLY) *Do not use* NOW Care 08/26/25 14:48 Completed EKG (ED Only) Stat Exams 08/26/25 14:48 Draft XR chest 1V Stat Exams 08/26/25 14:48 Completed BNP [B-Type Natriuretic Peptide] Stat Lab 08/26/25 15:05 Completed CBC Stat Lab 08/26/25 15:05 Completed CMP [Comprehensive Metabolic Panel] Stat Lab 08/26/25 15:50 Completed TSH [Thyroid Stimulating Hormone] Stat Lab 08/26/25 15:50 Completed Troponin I Stat Lab 08/26/25 15:50 Completed LORazepam [Ativan] Med 08/26/25 14:48 Discontinued 1 mg PO X1 ONE Vital Signs Vital signs: Vital Signs Temperature 97.5 F 08/26/25 14:19 Pulse Rate 91 08/26/25 14:19 Respiratory Rate 16 08/26/25 14:19 Blood Pressure 148/88 H 08/26/25 14:19 Pulse Oximetry (%) 98 08/26/25 14:19 Oxygen Delivery Method Room Air 08/26/25 14:19 Oxygen saturation is 98% in room air Allergic Reaction MDM Narrative MDM Narrative:: This is a case of 64-year-old female with history of osteoarthritis of both knee came in in the emergency room due to heart racing feeling anxious and mild shortness of breath after corticosteroid on both knee for his osteoarthritis of the knee patient has no rash no facial or throat swelling physical examination patient is awake alert oriented not in distress nontoxic looking patient denies any shortness of breath at the time of exam lungs sound is clear no wheezing no crackles no rales no retraction no stridor HEENT exam is normal no facial or throat swelling no drooling of saliva patient can speak full sentence patient also has no rash with excellent skin turgor heart normal rate regular rhythm no murmur no pitting edema patient is mildly anxious but no suicidal no homicidal ideation no hallucination based on my physical examination and history patient has possible reaction to steroids in injection which causing her to have heart palpitation possible anxiety also blood test showed no leukocytosis no anemia kidney and liver function is normal no electrolyte imbalance troponin TSH BNP were normal EKG is normal sinus rhythm heart rate of [address] or elevation or elevation patient was not given any medication here in the emergency room patient was closely observed patient was here for 3 hours and there is no worsening of the symptoms in fact the patient verbalized resolved of the symptoms without the medication. Based on my physical examination and history patient has no cardiopulmonary pathology nor signs and symptoms of angioedema nor anaphylaxis patient have possible reaction to steroid I discussed with her if symptoms recur take Benadryl [id number] as needed patient was also given Vistaril for anxiety patient will advised to follow-up with PCP to see industrial commercial groundskeeper for palpitation for echocardiogram stress test and Holter monitor and psychiatrist for anxiety worsening symptoms or any emergent concern return precaution in the ER is advised Patient was discharged with comfortable condition walking with stable gait. Patient verbalized no further complains explained diagnosis and answered patient question. Patient is comfortable with the proposed management plan including the need to follow up with his/her primary care physician and any specialist if applicable Discussed patient for any urgent condition or worsening sx, He/She needed to go to emergency room immediately or call 911. Patient acknowledge the responsibility to follow up as instructed and to monitor her/his symptoms. For any persistence of the symptoms for more than 3-5 days return precaution advised. Discussed the result of the test and was given printed discharge instruction Patient data External records reviewed:: [facility] previous records Clinical information provided by:: patient Social determinants that could affect healthcare access:: none Patient has the following chronic illnesses:: None How is presenting disease/condition affected by chronic disease/condition?: no chronic disease Evaluation data The following diagnostics were reviewed and interpreted by me:: lab results, radiology exam(s) and EKG tracing(s) Lab and/or radiology exams considered but not ordered:: Reviewed Interpretation Summary: Reviewed Medications / Prescriptions Medications or Prescriptions considered but not ordered:: Given Medication administrations:: Medication Administration History Discontinued Medications Lorazepam (Lorazepam 0.5 Mg Tablet) 1 mg PO X1 ONE Stop: 08/26/25 14:49 Last Admin: 08/26/25 15:32 Dose: 1 mg Documented By: OA Give Consultations Consultation(s) initiated? (list below): No Diagnosis Differential Diagnosis allergic reaction: allergic reaction Most likely diagnosis given after review of the tests above:: Acute allergic Reaction Admission Indicated Admission indicated?: not indicated Explain why admission is indicated or not indicated:: Not indicated Admission Request Was there a request for admission?: No Admission Attestation Admission request attestation: Not indicated Disposition Plan Disposition Plan: Discharge Discharge Attestation Discharge Attestation: The patient and all family members were given an opportunity to ask questions and understood the discharge instructions. Discharge instructions specifically effects, indications for sooner follow up or return to the emergency department, and the expected course of current diagnosis. Patient condition: Stable Discharge Plan Plan Patient Disposition: HOME (Self Care) Patient condition on transfer: Stable Prescriptions/Referrals Prescriptions/Med Rec: New hydroxyzine pamoate 25 mg capsule 25 mg PO BID PRN (Reason: anxiety) Qty: 10 0RF No Action meloxicam 7.5 mg tablet 7.5 mg PO QDAY Qty: 45 3RF metformin 500 mg tablet 500 mg PO QDAY Referrals: Tawnya Andrews FNP [Primary Care Provider] - In 1 week Problem List Clinical Impression: Acute allergic reaction, Heart palpitations, Anxiety Patient/Caregiver Discharge Instructions Education Materials: ED Medicine Reaction: Allergic, ED Anxiety Reaction, ED Palpitations Additional Instructions: It is very important to follow-up with your industrial commercial groundskeeper for further evaluation and treatment of your palpitation for possible echocardiogram stress test and Holter monitor your is possibility that you have allergy on the corticosteroid if symptoms require take [id number] Benadryl as needed for acute allergic. Recurrence persistent worsening symptoms or any emergent condition return precaution in the emergency room is advised follow-up with your primary care physician in 2 days for reevaluation of the medication as directed Print Language: Kyrgyz Stand Alone Forms: Eliane Award Info., Patient Portal Info Letter ZAHRAA/KATE Supervising Physician ZAHRAA/KATE Supervising Physician: dr gongora
[2025-08-26 17:58] VITALS: BP 122/84; PULSE 88
== END 2025-08-26 17:59 | disposition home or self-care (01) ==
PROVIDERS: Nurse Practitioner Family; Emergency Provider Family Medicine; PCP Registered Nurse
DX: T78.40XA Allergy, unspecified, initial encounter (principal); F41.9 Anxiety disorder, unspecified; M17.0 Bilateral primary osteoarthritis of knee; X58.XXXA Exposure to other specified factors, initial encounter
CPT/HCPCS: 36415; 71045; 80053; 83880; 84443; 84484; 85025; 93005; 99283; A9270